=== PATIENT | male | born 1955 | race Hispanic/Latino ===

== ENCOUNTER 2019-12-14 | Day surgery (SDC) | payer SELFPAY ==
[~2019-12-14] MED LIST: AMOXICILLIN875 MG PO; GLIPIZIDE10 M2 PO; GLIPIZIDE5 M2 PO; GNP KRILL OIL O1 CAP; LEVOTHYROXIN50 MCG PO; LISINOPRIL10 MG PO; LISINOPRIL20 MG PO; LORTAB 5 OR; METFORMIN1000 MG PO; METFORMIN500 M1 PO; METFORMIN500 MG PO; NAPROSYN500 MG OR; NO HOME MEDS; PENICILLN VK500 MG PO; VIAGRA100 MG PO
== END 2019-12-14 09:18 | disposition home or self-care (01) | DRG 951 ==
PROC: 0DJD8ZZ Inspection of Lower Intestinal Tract, Via Natural or Artificial Opening Endoscopic (ICD-10-PCS; principal; 2019-12-14)
DX: Z12.11 Encounter for screening for malignant neoplasm of colon (principal); K57.30 Diverticulosis of large intestine without perforation or abscess without bleeding; K64.8 Other hemorrhoids; I10 Essential (primary) hypertension; E11.9 Type 2 diabetes mellitus without complications; Z79.84 Long term (current) use of oral hypoglycemic drugs

== ENCOUNTER 2022-05-17 17:13 | Emergency (ER) | payer MEDICARE ==
[~2022-05-17] VITALS: Ht 172.7 cm; Wt 70.9 kg
[2022-05-17 17:18] VITALS: BP 148/94
[2022-05-17 17:39] VITALS: BP 133/78
[2022-05-17 17:45] VITALS: BP 134/72
[2022-05-17 18:00] VITALS: BP 135/78
[2022-05-17 18:15] VITALS: BP 130/74
== END 2022-05-17 18:19 | disposition home or self-care (01) ==
LOC: ED 17:13
DX: S06.0X0A Concussion without loss of consciousness, initial encounter (principal); I10 Essential (primary) hypertension; E11.9 Type 2 diabetes mellitus without complications; W01.0XXA Fall on same level from slipping, tripping and stumbling without subsequent striking against object, initial encounter; Y92.009 Unspecified place in unspecified non-institutional (private) residence as the place of occurrence of the external cause; Z79.84 Long term (current) use of oral hypoglycemic drugs

== ENCOUNTER 2022-12-16 15:07 | Emergency (ER) | payer MEDICARE ==
[2022-12-16] VITALS (7 sets, daily range): BP systolic 104–123; BP diastolic 68–78
[2022-12-16 16:28] LABS: BASO% 0.2 % (0-3); EOS% 0.3 % (0-8); HEMATOCRIT 43.3 % (39.0-50.0); HEMOGLOBIN 14.5 g/dl (14.0-18.0); IMMATURE GRANULOCYTES 0.1 % (0.0-5.0); LYMPH% 53.6 % (15-41); MEAN CELL VOLUME 87.5 fL CALC (80.0-100.0); MEAN CORPUSCULAR HGB 29.3 pG CALC (26.0-32.0); MEAN CORPUSCULAR HGB CONC 33.5 g/dL CAL (32.0-36.0); MONO% 5.2 % (2-13); NEUT# 6.45 thou/uL (1.82-7.42); NEUT% 40.6 % (42-76); RED BLOOD COUNT 4.95 mill/uL (4.70-6.10); RED CELL DISTRI WIDTH 13.6 % (11.5-15.5)
[2022-12-16 16:35] LABS: ALBUMIN 4.5 g/dL (3.2-5.0); ALKALINE PHOSPHATASE 106 u/l (38-126); BILIRUBIN, TOTAL 0.5 mg/dL (0.2-1.3); BUN 31 mg/dL (8-23); BUN/CREATININE RATIO 26 (12-20 (CALC)); CARBON DIOXIDE 24 mmol/l (22-30); CREATININE 1.2 mg/dL (0.7-1.3); GFR FOR AFR.AMER. > 60 ML/MIN (>=60 (CALC)); GFR OTHER RACES 60 ML/MIN (>=60 (CALC)); POTASSIUM 4.8 mmol/l (3.5-5.1); SGOT/AST 25 u/l (19-48); TOTAL PROTEIN 7.5 g/dL (6.3-8.2)
[2022-12-16 16:49] LABS: ANION GAP 17 (6-22 (CALC)); CHLORIDE 90 mmol/l (95-108); SODIUM 126 mmol/l (137-146)
[2022-12-16 17:03] LABS: URINE BILIRUBIN - DIPSTICK NEGATIVE (NEGATIVE); URINE BLOOD DIPSTICK TRACE-INTACT (NEGATIVE); URINE COLOR YELLOW; URINE GLUCOSE - DIPSTICK >=1000 mg/dL (NEGATIVE); URINE KETONE 15 mg/dL (NEGATIVE); URINE LEUK ESTERASE NEGATIVE (NEGATIVE); URINE PH 5.5 (4.5-8.0); URINE PROTEIN - DIPSTICK NEGATIVE (NEG-TRACE); URINE UROBILINOGEN - DIPSTICK 0.2 E.U./dL (0.2)
[2022-12-16 17:09] LABS: URINE NITRITE - DIPSTICK NEGATIVE (Negative)
[2022-12-16] MEDS ORDERED: LEVEMIR FL100 UNIT/M SC (18:16)
== END 2022-12-16 19:00 | disposition home or self-care (01) ==
LOC: ED 15:07
PROVIDERS: Nurse Practitioner
DX: E11.65 Type 2 diabetes mellitus with hyperglycemia (principal); I10 Essential (primary) hypertension; Z79.4 Long term (current) use of insulin; Z79.84 Long term (current) use of oral hypoglycemic drugs

== ENCOUNTER 2024-12-26 17:54 | Emergency (ER) | payer MEDICARE ==
[~2024-12-26] VITALS: Ht 172.7 cm; Wt 66.0 kg
[2024-12-26] VITALS (10 sets, daily range): BP systolic 111–128; BP diastolic 72–86
[~2024-12-26 17:54] MED LIST changes: +LEVEMIR FL100 UNIT/M SC
[2024-12-26 18:43] LABS: BASO% 0.2 % (0-3); EOS% 0.2 % (0-8); HEMATOCRIT 41.3 % (39.0-50.0); HEMOGLOBIN 13.8 g/dl (14.0-18.0); IMMATURE GRANULOCYTES 0.3 % (0.0-5.0); LYMPH% 19.9 % (15-41); MEAN CELL VOLUME 90.8 fL CALC (80.0-100.0); MEAN CORPUSCULAR HGB 30.3 pG CALC (26.0-32.0); MEAN CORPUSCULAR HGB CONC 33.4 g/dL CAL (32.0-36.0); MONO% 9.3 % (2-13); NEUT# 13.06 thou/uL (1.82-7.42); NEUT% 70.1 % (42-76); RED BLOOD COUNT 4.55 mill/uL (4.70-6.10); RED CELL DISTRI WIDTH 13.7 % (11.5-15.5)
[2024-12-26 18:54] LABS: ALBUMIN 4.2 g/dL (3.2-5.0); ALKALINE PHOSPHATASE 105 u/l (38-126); ANION GAP 11 (6-22 (CALC)); BUN 19 mg/dL (8-23); BUN/CREATININE RATIO 16 (12-20 (CALC)); CARBON DIOXIDE 24 mmol/l (22-30); CHLORIDE 103 mmol/l (95-108); CREATININE 1.2 mg/dL (0.7-1.3); ESTIMATED GFR 65 ML/MIN (>=90 (CALC)); POTASSIUM 4.1 mmol/l (3.5-5.1); SGOT/AST 33 u/l (19-48); SODIUM 135 mmol/l (137-146); TOTAL PROTEIN 7.7 g/dL (6.3-8.2)
[2024-12-26 18:57] LABS: BILIRUBIN, TOTAL 1.3 mg/dL (0.2-1.3)
[2024-12-26 20:47] LABS: URINE BLOOD DIPSTICK Large (NEGATIVE); URINE GLUCOSE - DIPSTICK Negative (NEGATIVE); URINE KETONE Trace mg/dL (NEGATIVE); URINE LEUK ESTERASE Negative (NEGATIVE); URINE NITRITE - DIPSTICK Negative (Negative); URINE PROTEIN - DIPSTICK >=300 mg/dL (NEG-TRACE); URINE SPECIFIC GRAVITY >=1.030; URINE UROBILINOGEN - DIPSTICK >=8.0 E.U./dL (0.2)
[2024-12-26 20:48] LABS: URINE COLOR Dark yellow
[2024-12-26 20:53] LABS: URINE MUCUS MODERATE hpf (NONE-FEW); URINE RBC 0-2 RBC/hpf (0-5)
[2024-12-26 20:54] LABS: URINE COARSE GRANULAR CAST FEW lpf; URINE SQUAMOUS EPITHELIAL CELL FEW EPI/hpf (0-FEW)
[2024-12-26 20:55] LABS: URINE RENAL EPITHELIAL CELLS FEW hpf; URINE TRANSITIONAL EPI. CELLS FEW hpf
[2024-12-26] MEDS ORDERED: levoFLOXacin 500 MG TAB PO ONE (21:55)
[2024-12-26] MEDS ORDERED: LEVOFLOXACIN750 MG PO (22:02)
[2024-12-27] MEDS ORDERED: levoFLOXacin 500 MG TAB PO SCH (09:00)
== END 2024-12-26 22:48 | disposition home or self-care (01) ==
LOC: ED 17:54
PROVIDERS: Family Medicine
DX: J18.9 Pneumonia, unspecified organism (principal); E11.9 Type 2 diabetes mellitus without complications; I10 Essential (primary) hypertension; Z79.84 Long term (current) use of oral hypoglycemic drugs; Z79.4 Long term (current) use of insulin
CPT/HCPCS: J0696